=== PATIENT | male | born 1940 | race Caucasian/White ===

== ENCOUNTER 2018-06-23 19:31 | Emergency (ER) | payer MEDICARE ==
[2018-06-23 20:17] VITALS: BP 145/61
--- NOTE | 2018-06-23 20:30 | UC ---
General HPI - HPI Summary HPI Summary: Patient noted some vague pain in his left foot while walking around yesterday. Today, he and his note the foot looks a little red and swollen. He denies any history of injury. His states that he was a bit chilled yesterday but they deny fever. He has no other complaints. He denies any prior history of gout. - History of Current Complaint Chief Complaint: UCLowerExtremity Stated Complaint: LEFT FOOT PAIN Time Seen by Provider: 06/23/18 20:23 Hx Obtained From: Patient, Family/Nuclear Medicine Tech Onset/Duration: Gradual Onset Timing: Constant Pain Intensity: 0 Alleviating: nothing Associated Signs & Symptoms: Negative: Chest Pain, Fever, SOB - Allergy/Home Medications Allergies/Adverse Reactions: Allergies Allergy/AdvReac Type Severity Reaction Status Date / Time No Known Allergies Allergy Verified 09/29/15 17:33 Home Medications: Home Medications Cholecalciferol (Vitamin D3) [Vitamin D3] 1,000 unit PO DAILY 06/23/18 [History Confirmed 06/23/18] Valacyclovir HCl [Valacyclovir] 500 mg PO DAILY 06/23/18 [History Confirmed 12/10] PMH/Surg Hx/FS Hx/Imm Hx - Additional Past Medical History Additional PMH: Herpes keratitis Endocrine History: Dyslipidemia Cardiovascular History: Hypertension - Surgical History Surgical History: Yes Surgery Procedure, Year, and Place: T&A VASECTOMY - Family History Known Family History: Positive: Cardiac Disease, Other - [place] - Social History Occupation: Retired Lives: With Family Alcohol Use: None Substance Use Type: None Smoking Status (MU): Former Smoker - Immunization History Most Recent Influenza Vaccination: 07/2015 Vaccination Up to Date: Yes Review of Systems Constitutional: Negative - LLE: foot slight calderon color compared to R plus mild to moderate swelling from knee down and slight swelling to thigh. Calf is tense and dilates veins noted, varicose vs secondary obst. the leg has full s/v/m function. No inguinal adenopathy. No specific bony tenderness appreciated. Skin: Negative Eyes: Negative ENT: Negative Respiratory: Negative Cardiovascular: Negative Gastrointestinal: Negative Genitourinary: Negative Motor: Negative Neurovascular: Negative Musculoskeletal: Other: - red and swelling L foot Neurological: Negative Psychological: Negative Is Patient Immunocompromised?: No All Other Systems Reviewed And Are Negative: Yes Physical Exam Triage Information Reviewed: Yes Appearance: Well-Appearing Vital Signs: Initial Vital Signs Temp 98.7 F 06/23/18 20:10 Pulse 75 06/23/18 20:10 Resp 15 06/23/18 20:10 BP 145/61 06/23/18 20:10 Pulse Ox 97 06/23/18 20:10 Eyes: Positive: Conjunctiva Clear ENT: Positive: Normal ENT inspection Neck: Positive: Supple, Nontender, No Lymphadenopathy Respiratory: Positive: Lungs clear, Normal breath sounds Cardiovascular: Positive: RRR, No Murmur Abdomen Description: Positive: Nontender, No Organomegaly, Soft Bowel Sounds: Positive: Present Musculoskeletal: Positive: Other: - LLE: foot slight calderon color compared to R plus mild to moderate swelling from knee down and slight swelling to thigh. Calf is tense and dilates veins noted, varicose vs secondary obst. the leg has full s/v/m function. No inguinal adenopathy. No specific bony tenderness appreciated. Pt notes foot "tense" with standing. Neurological: Positive: Alert Psychological: Positive: Age Appropriate Behavior Skin Exam: Normal Course/Dx - Course Course Of Treatment: DVT vs possible cellulitis thus ER transfer for additional evaluation. foot xray defer to ER discretion as well. [facility] ER called. I spoke to Alek Bray SAND ANALYST and advised of concern for possible DVT. He notes they do have U/S. Pt agrees to transfer. - Differential Dx - Multi-Symptom Provider Diagnoses: Acute swelling LLE and L foot pain. Discharge - Sign-Out/Discharge Documenting (check all that apply): Patient Departure - Discharge Plan Condition: Stable Disposition: TRANS HIGHER LVL OF CARE FAC Referrals: Vipul Ruvalcaba MD [Primary Care Provider] - Additional Instructions: LEAVE HERE AND GO DIRECTLY TO THE [place] ER - Billing Disposition and Condition Condition: STABLE Disposition: Trans Higher Lvl of Care Fac Attestation Statement User Type: Provider - I was available for consult. This patient was seen by the SHAUNA. The patient was not presented to, seen by, or examined by me. -Deena
== END 2018-06-23 20:56 | disposition short-term general hospital (02) ==
LOC: UCCORT 19:31
DX: M79.89 Other specified soft tissue disorders (principal); M79.672 Pain in left foot; I10 Essential (primary) hypertension; B00.52 Herpesviral keratitis; Z87.891 Personal history of nicotine dependence
CPT/HCPCS: 99212; G0463

== ENCOUNTER 2018-07-30 14:49 | Emergency (ER) | payer MEDICARE ==
[2018-07-30 16:10] VITALS: BP 150/78
--- NOTE | 2018-07-30 16:32 | UC ---
UC General HPI - HPI Summary HPI Summary: Patient is complaining of one-week history of pain to his left ear. He denies any history of injury or drainage. He has no associated fever. He does admit to having a bit of a runny nose. - History of Current Complaint Chief Complaint: UCEar Stated Complaint: LEFT EAR CONCERN Time Seen by Provider: 07/30/18 16:23 Hx Obtained From: Patient, Family/Head Of Store Operations Onset/Duration: Gradual Onset Timing: Constant Pain Intensity: 7 Aggravating: Nothing Alleviating: nothing Associated Signs & Symptoms: Negative: Fever, Headache - Allergy/Home Medications Allergies/Adverse Reactions: Allergies Allergy/AdvReac Type Severity Reaction Status Date / Time No Known Allergies Allergy Verified 07/30/18 16:01 PMH/Surg Hx/FS Hx/Imm Hx - Additional Past Medical History Additional PMH: Recent keratitis to the right eye, rash to face and head and chest times one month which is under the care of dermatology Endocrine History: Dyslipidemia Cardiovascular History: Hypertension - Surgical History Surgical History: Yes Surgery Procedure, Year, and Place: T&A VASECTOMY - Family History Known Family History: Positive: Cardiac Disease, Other - [place] - Social History Occupation: Retired Lives: With Family Alcohol Use: None Substance Use Type: None Smoking Status (MU): Former Smoker When Did the Patient Quit Smoking/Using Tobacco: 1987 - Immunization History Most Recent Influenza Vaccination: 07/2015 Vaccination Up to Date: Yes Review of Systems Constitutional: Negative Skin: Rash - x1 month, tx by dermatology Eyes: Negative ENT: Ear Ache - L Respiratory: Negative Cardiovascular: Negative Gastrointestinal: Negative Genitourinary: Negative Motor: Negative Neurovascular: Negative Musculoskeletal: Negative Neurological: Negative Psychological: Negative Is Patient Immunocompromised?: No All Other Systems Reviewed And Are Negative: Yes Physical Exam Triage Information Reviewed: Yes Appearance: Well-Appearing Vital Signs: Initial Vital Signs Temp 98.6 F 07/30/18 16:05 Pulse 96 07/30/18 16:05 Resp 20 07/30/18 16:05 BP 150/78 07/30/18 16:05 Pulse Ox 95 07/30/18 16:05 Vital Signs Reviewed: Yes Eyes: Positive: Conjunctiva Clear ENT: Positive: Pharynx normal, TMs normal, Other - Patient notes pain with pressure on the left tragus. The left canal is mildly swollen and his scant exudate. The right canal is clear. No mastoid tenderness or auricular adenopathy.. Negative: Nasal congestion, Nasal drainage Neck: Positive: Supple, Nontender, No Lymphadenopathy Respiratory: Positive: Lungs clear, Normal breath sounds Cardiovascular: Positive: RRR, No Murmur Abdomen Description: Positive: Nontender, No Organomegaly, Soft Bowel Sounds: Positive: Present Musculoskeletal: Positive: ROM Intact Neurological: Positive: Alert Psychological: Positive: Normal Response To Family, Age Appropriate Behavior Skin Exam: Normal, Other - Patient has a non-blanching red discoloration to his periorbital areas both cheeks behind both ears tenderness somewhat reticular pattern to his scalp. He also has some discoloration to his anterior chest. None of this is blistering, peeling or scaly. Course/Dx - Course Course Of Treatment: 1. His left ear is consistent with an otitis externa. I' m going to start him on Cipro, drops twice daily for the next week. 2. Patient describes his rash as chronic for the past month and he is under the care of a cable driller for this. He and his report that he has been on different lotions but the rash doesn't seem to improve. I inquired as to whether or not he has seen his primary care provider. states he does not want to see the primary care provider for the rash because he is already seeing dermatology. This rash does not look like any type of infection, infestation or psoriasis; however, I think a vasculitis is in the differential. I have strongly encouraged that the pt call his primary care provider tomorrow or this coming Thursday if they're not open on Saturdays for the next available appointment for evaluation of his rash. Patient and both agree to this. - Differential Dx - Multi-Symptom Provider Diagnoses: Left otitis externa Discharge - Sign-Out/Discharge Documenting (check all that apply): Patient Departure All imaging exams completed and their final reports reviewed: No Studies - Discharge Plan Condition: Stable Disposition: HOME Patient Education Materials: Otitis Externa (ED) Referrals: Vipul Ruvalcaba MD [Primary Care Provider] - As Soon As Possible Additional Instructions: CIPRO DROPS-4 DROPS LEFT EAR TWICE DAILY FOR 7 DAYS. - Billing Disposition and Condition Condition: STABLE Disposition: Home
[2018-07-30] MEDS ORDERED: Ciprofloxacin 0.3% OPTH.SOL* 2.5 ML BTL BOTH EYES ONE (16:57)
== END 2018-07-30 17:12 | disposition home or self-care (01) ==
LOC: UCCORT 14:49
DX: H60.92 Unspecified otitis externa, left ear (principal); R21 Rash and other nonspecific skin eruption; Z87.891 Personal history of nicotine dependence
CPT/HCPCS: 99212; A9270-GY; G0463